=== PATIENT | male | born 1990 | race Caucasian/White ===

== ENCOUNTER 2022-06-11 22:25 | Emergency (ER) | payer BC, OTHER ==
[~2022-06-11] VITALS: Ht 177.8 cm; Wt 128.9 kg
[2022-06-12] MEDS ORDERED: BACITRACIN ZINC OINT UDPKT TOP ONE (01:00)
[2022-06-12] MEDS ORDERED: LIDOCAINE HCL/PF 1% 10 MG/ML 5ML VIAL INFIL ONE (01:00)
[2022-06-12] MEDS ORDERED: TETANUS, DIPHTHERIA, PERTUSSIS VAC/PF 0.5ML (>10YR OLD) IM ONE (01:00)
[2022-06-12] MEDS ORDERED: IBUPROFEN 600MG TABLET PO ONE (01:00)
[2022-06-12 01:20] VITALS: BP 132/90
== END 2022-06-12 03:38 | disposition home or self-care (01) ==
LOC: ER 22:25
DX: S51.811A Laceration without foreign body of right forearm, initial encounter (principal); X58.XXXA Exposure to other specified factors, initial encounter; Y93.89 Activity, other specified; Y92.89 Other specified places as the place of occurrence of the external cause; Y99.8 Other external cause status
CPT/HCPCS: 12004; 90471; 90715; 99283; J3490; Z7610